=== PATIENT | female | born 1995 | race Caucasian/White ===

== ENCOUNTER → 2020-02-02 | Outpatient (CLI) | payer BC ==
[2020-02-02 14:19] LABS: FREE T4 0.98 NG/DL (0.76-1.46); THYROID STIMULATING HORMONE 2.87 uIU/ML (0.358-3.740)
== END ==
LOC: M LAB 13:13
PROVIDERS: ATTEND Obstetrics & Gynecology
DX: E03.9 Hypothyroidism, unspecified (principal)

== ENCOUNTER 2022-07-25 13:12 | Emergency (ER) | payer BC, OTHER ==
[~2022-07-25] VITALS: Ht 165.1 cm; Wt 105.6 kg
[2022-07-25 13:57] LABS: BASO % 0.2 % (0.0-1.0); EOS # 0.2 10^3/uL (0.0-0.5); EOS % 1.9 % (0.0-3.0); HEMATOCRIT 42.2 % (36.0-47.0); LYMPH # 1.3 10^3/uL (1.5-5.0); LYMPH % 14.7 % (24.0-44.0); MEAN CORPUSCULAR HEMOGLOBIN 30.3 pg (27.0-33.0); MEAN CORPUSCULAR HGB CONC 33.2 g/dl (32.0-36.5); MEAN CORPUSCULAR VOLUME 91.3 fl (80.0-96.0); MONO # 0.7 10^3/uL (0.0-0.8); MONO % 7.1 % (2.0-8.0); NEUTROPHILS # 6.9 10^3/uL (1.5-8.5); NEUTROPHILS % 75.9 % (36.0-66.0); PLATELET COUNT, AUTOMATED 237 10^3/uL (150-450); RED BLOOD COUNT 4.62 10^6/uL (4.00-5.40); WHITE BLOOD COUNT 9.1 10^3/uL (4.0-10.0)
[2022-07-25] MEDS ORDERED: MORPHINE 2 MG/ML 1ML VIAL IV ONE (14:20)
[2022-07-25] MEDS ORDERED: ONDANSETRON 4MG 2ML VIAL IV ONE (14:20)
[2022-07-25 14:32] LABS: ALBUMIN 3.7 G/DL (3.2-5.2); ALKALINE PHOSPHATASE 40 U/L (46-116); ALT/SGPT 20 U/L (7.0-40); AST/SGOT 60 U/L (<34); BILIRUBIN,DIRECT < 0.1 MG/DL (<0.4); BILIRUBIN,TOTAL 0.2 MG/DL (0.3-1.2); CK-MB VALUE MASS < 1.0 NG/ML (<3.6); CPK CREATINE PHOSPHOKINASE 117 U/L (34-145); LIPASE 46 U/L (12-53); MB/CK RELATIVE INDEX 0.85 (< OR =4)
[2022-07-25] MEDS ORDERED: GI COCKTAIL 50ML BTL(HYOSCYAMINE/MAALOX/LIDOCAINE VISCOUS)(1:3:1) PO ONE (15:55)
[2022-07-25] MEDS ORDERED: MORPHINE 4 MG/ML 1ML VIAL IV ONE (17:05)
[2022-07-25] MEDS ORDERED: ISOVUE-370 76% 100ML VIAL As Ordered ONE (17:20)
[2022-07-25] MEDS: HALOPERIDOL 5MG/ML 1ML VIAL IV ONE ×2 (17:55→18:19)
[2022-07-25] MEDS ORDERED: PROMETHAZINE 25MG/ML 1ML VIAL IV ONE (18:30)
[2022-07-25] MEDS ORDERED: KETOROLAC 30 MG/ML 1ML VIAL IV ONE (18:30)
[2022-07-25] MEDS ORDERED: PROM25TA12 PO (19:27)
[2022-07-25] MEDS ORDERED: HYDR-3713 PO (19:27)
[2022-07-25] MEDS ORDERED: OMEP20TA2 PO (19:34)
[2022-07-25] MEDS ORDERED: NORCO 5/325MG TABLET (HOME DOSE PACK) PO ONE (19:35)
[2022-07-25 20:08] VITALS: BP 131/82
== END 2022-07-25 20:08 | disposition home or self-care (01) ==
LOC: M ED 13:12
DX: D18.09 Hemangioma of other sites (principal); R10.13 Epigastric pain; K80.20 Calculus of gallbladder without cholecystitis without obstruction; E03.9 Hypothyroidism, unspecified; F41.9 Anxiety disorder, unspecified; F32.9 Major depressive disorder, single episode, unspecified; K76.89 Other specified diseases of liver; Z91.018 Allergy to other foods; Z91.011 Allergy to milk products; Z91.89 Other specified personal risk factors, not elsewhere classified; Z91.040 Latex allergy status
CPT/HCPCS: 74177; 76705; 80047; 80076; 81001; 82550; 82553; 83690; 84702; 85025; 87086; 93005; 96374; 96375; 96376; 99284; J1885; J2405; J2550; Q9967

== ENCOUNTER 2022-08-16 07:50 | Emergency (ER) | payer OTHER ==
[~2022-08-16] VITALS: Ht 165.1 cm; Wt 105.4 kg
[~2022-08-16 07:50] MED LIST: HYDR-3713 PO; OMEP20TA2 PO; PROM25TA12 PO
[2022-08-16] MEDS ORDERED: ZOLO100T (08:06)
[2022-08-16] MEDS ORDERED: TRI-TAB16 (08:06)
[2022-08-16] MEDS ORDERED: LEVO75TA4 (08:06)
[2022-08-16] MEDS ORDERED: KETOROLAC 30 MG/ML 1ML VIAL IV ONE (09:00)
[2022-08-16] MEDS ORDERED: ONDANSETRON 4MG 2ML VIAL IV ONE (09:00)
[2022-08-16] MEDS ORDERED: NS 1,000 ML IV ONE (09:00)
[2022-08-16 09:23] LABS: BASO % 0.4 % (0.0-1.0); EOS # 0.1 10^3/uL (0.0-0.5); EOS % 1.1 % (0.0-3.0); HEMATOCRIT 39.9 % (36.0-47.0); LYMPH % 9.3 % (24.0-44.0); MEAN CORPUSCULAR HEMOGLOBIN 31.5 pg (27.0-33.0); MEAN CORPUSCULAR HGB CONC 35.1 g/dl (32.0-36.5); MEAN CORPUSCULAR VOLUME 89.7 fl (80.0-96.0); MONO # 0.6 10^3/uL (0.0-0.8); MONO % 6.1 % (2.0-8.0); NEUTROPHILS # 8.5 10^3/uL (1.5-8.5); NEUTROPHILS % 82.8 % (36.0-66.0); PLATELET COUNT, AUTOMATED 208 10^3/uL (150-450); RED BLOOD COUNT 4.45 10^6/uL (4.00-5.40); WHITE BLOOD COUNT 10.3 10^3/uL (4.0-10.0)
[2022-08-16 09:45] LABS: LIPASE 31 U/L (12-53)
[2022-08-16 09:47] LABS: ALBUMIN 3.5 G/DL (3.2-5.2); ALKALINE PHOSPHATASE 56 U/L (46-116); ALT/SGPT 20 U/L (7.0-40); AST/SGOT 19 U/L (<34); BILIRUBIN,DIRECT < 0.1 MG/DL (<0.4); BILIRUBIN,TOTAL 0.3 MG/DL (0.3-1.2); BLOOD UREA NITROGEN 13 MG/DL (9-23); CALCIUM LEVEL 8.7 MG/DL (8.5-10.1); CARBON DIOXIDE LEVEL 23 MMOL/L (20-31); CHLORIDE LEVEL 106 MMOL/L (98-107); CREATININE FOR GFR 0.77 MG/DL (0.55-1.30); GLOMERULAR FILTRATION RATE > 60.0 (>60); GLUCOSE, FASTING 96 MG/DL (60-100); POTASSIUM SERUM 4.3 MMOL/L (3.5-5.1); SODIUM LEVEL 138 MMOL/L (136-145); TOTAL PROTEIN 6.6 G/DL (5.7-8.2)
[2022-08-16] MEDS ORDERED: ISOVUE-370 76% 100ML VIAL As Ordered ONE (10:10)
[2022-08-16 10:18] LABS: HCG, SERUM QUALITATIVE NEGATIVE (NEGATIVE)
[2022-08-16] MEDS ORDERED: KETO10TAB PO (11:19)
[2022-08-16] MEDS ORDERED: MIRA3350 PO (11:19)
[2022-08-16] MEDS ORDERED: ONDA4TAB6 PO (11:19)
[2022-08-16 11:58] VITALS: BP 125/70
== END 2022-08-16 11:59 | disposition home or self-care (01) ==
LOC: M ED 07:50
DX: K59.00 Constipation, unspecified (principal); I88.0 Nonspecific mesenteric lymphadenitis; N83.12 Corpus luteum cyst of left ovary; K21.9 Gastro-esophageal reflux disease without esophagitis; K80.20 Calculus of gallbladder without cholecystitis without obstruction; E03.9 Hypothyroidism, unspecified; F41.9 Anxiety disorder, unspecified; F32.9 Major depressive disorder, single episode, unspecified; Z91.018 Allergy to other foods; Z91.040 Latex allergy status; Z91.011 Allergy to milk products; Z91.048 Other nonmedicinal substance allergy status
CPT/HCPCS: 74177; 76705; 80047; 80048; 80076; 81001; 83605; 83690; 84702; 84703; 85025; 87040; 87086; 96361; 96374; 96375; 99284; J1885; J2405; Q9967

== ENCOUNTER 2022-09-29 07:19 | Day surgery (SDC) | payer OTHER ==
[~2022-09-29] VITALS: Ht 165.1 cm; Wt 105.8 kg
[~2022-09-29 07:19] MED LIST changes: +KETO10TAB PO; +LEVO75TA4 PO; +MIRA3350 PO; +OMEP-357 PO; +ONDA4TAB6 PO; +TRI-TAB16 PO; +ZOLO100T PO; +ceFAZolin SOD 1 GM in D5W MINI-BAG PLUS 50 ML IV ONE; +ceFAZolin SOD 2 GM in IV 1 EA IV ONE
[2022-09-29] MEDS ORDERED: LR 1,000 ML IV SCH ×2 (08:00→10:20)
[2022-09-29] MEDS ORDERED: MIDAZOLAM INJ 2MG/2ML VIAL As Ordered ONE (08:48)
[2022-09-29] MEDS ORDERED: ONDANSETRON 4MG 2ML VIAL As Ordered ONE (08:48)
[2022-09-29] MEDS ORDERED: ROCURONIUM BROMIDE 50MG/5ML VIAL As Ordered ONE (08:48)
[2022-09-29] MEDS ORDERED: fentaNYL 100 MCG/2 ML INJECTION As Ordered ONE (08:48)
[2022-09-29] MEDS ORDERED: SUGAMMADEX SODIUM 500 MG/5 ML VIAL (BRIDION) As Ordered ONE (08:48)
[2022-09-29] MEDS ORDERED: propofoL 200 MG/20 ML VIAL As Ordered ONE (08:49)
[2022-09-29] MEDS ORDERED: KETOROLAC 60MG 2ML VIAL As Ordered ONE (08:49)
[2022-09-29] MEDS ORDERED: LIDOCAINE 2% 100MG/5ML SDV (FOR ANES.) As Ordered ONE (08:49)
[2022-09-29] MEDS ORDERED: HYDROmorphone HCL 2MG/ML 1ML VIAL As Ordered ONE (09:15)
[2022-09-29] MEDS ORDERED: ACETAMINOPHEN 1000MG 100ML IV BAG As Ordered ONE (09:20)
[2022-09-29] MEDS ORDERED: ceFAZolin 2 GM/D5W 50 ML IV BAG As Ordered ONE (09:20)
[2022-09-29] MEDS ORDERED: oxyCODONE 5MG TAB PO PRN (10:20)
[2022-09-29] MEDS ORDERED: HYDROMORPHONE HCL 0.5 MG/ 0.5 ML SYRINGE IV PRN (10:20)
[2022-09-29] MEDS ORDERED: fentaNYL 100 MCG/2 ML INJECTION IV PRN (10:20)
[2022-09-29] MEDS ORDERED: ONDANSETRON 4MG 2ML VIAL IV PRN (10:20)
[2022-09-29] MEDS ORDERED: NS 1,000 ML IV SCH (11:00)
[2022-09-29 12:46] VITALS: BP 140/87; TEMP 98.2; O2SAT 100
== END 2022-09-29 12:47 | disposition home or self-care (01) ==
LOC: M SDC 07:19
PROVIDERS: ATTEND Surgery
DX: K80.20 Calculus of gallbladder without cholecystitis without obstruction (principal); E03.9 Hypothyroidism, unspecified; F41.9 Anxiety disorder, unspecified; F32.A Depression, unspecified; F43.10 Post-traumatic stress disorder, unspecified; Z91.011 Allergy to milk products; Z91.012 Allergy to eggs; Z79.899 Other long term (current) drug therapy
CPT/HCPCS: 47562; 81025; 88304; J0131; J0690; J1100; J1170; J1885; J2250; J2405; J3010